=== PATIENT | female | born 1985 | race Caucasian/White ===

== ENCOUNTER → 2017-06-23 15:12 | Outpatient (CLI) | payer OTHER | END | disposition home or self-care (01) | LOC: D.MAMMO 05-27 10:30 | DX: R92.8 Other abnormal and inconclusive findings on diagnostic imaging of breast (principal); N63.0 Unspecified lump in unspecified breast ==

== ENCOUNTER → 2017-07-01 08:32 | Outpatient (CLI) | payer OTHER | END | disposition home or self-care (01) | LOC: D.US 08:32 | DX: N60.02 Solitary cyst of left breast (principal); N60.01 Solitary cyst of right breast; R92.8 Other abnormal and inconclusive findings on diagnostic imaging of breast ==

== ENCOUNTER → 2018-06-03 16:36 | Outpatient (CLI) | payer OTHER | END | disposition home or self-care (01) | LOC: D.MAMMO 08:30 | DX: R92.8 Other abnormal and inconclusive findings on diagnostic imaging of breast (principal) ==

== ENCOUNTER → 2018-06-26 07:51 | Outpatient (CLI) | payer OTHER | END | disposition home or self-care (01) | LOC: D.US 07:51 → D.MAMMO 08:00 | DX: R92.8 Other abnormal and inconclusive findings on diagnostic imaging of breast (principal) ==